=== PATIENT | female | born 1965 | race African-American/Black ===

== ENCOUNTER 2018-09-15 12:54 | Outpatient (CLI) | payer BC ==
--- NOTE | 2018-09-15 14:56 | MMO ---
BILATERAL DIGITAL SCREENING MAMMOGRAMS: HISTORY: A 53-year-old female who presents for a digital screening mammography. COMPARISON: 08/02/2017, 03/20/2016, 03/15/2015, 07/17/2013 FINDINGS: This patient's mammogram is interpreted with the assistance of computer aided detection. Bilateral breast augmentation prostheses. The breasts are heterogeneously dense, which can obscure s mall masses. There are stable, typically benign calcifications bilaterally, as well as stable multip le parenchymal dense asymmetries in both breasts. IMPRESSION: BI-RADS Category 2-Benign findings. Continue routine screening. POS: [facility]
== END 2018-09-15 12:55 | disposition home or self-care (01) ==
LOC: SCSMAMMO 12:54
PROVIDERS: ATTEND Obstetrics & Gynecology
DX: Z12.31 Encounter for screening mammogram for malignant neoplasm of breast (principal)
CPT/HCPCS: 77067